=== PATIENT | female | born 1980 | race African-American/Black ===

== ENCOUNTER 2017-06-03 16:13 | Emergency (ER) | payer OTHER ==
[~2017-06-03 16:13] MED LIST: FERR325C PO; FERRTAB2 PO; OB CCAP2 PO; PREN1CAP7 PO
--- NOTE | 2017-06-03 17:26 | PD ---
HPI Chief Complaint Abdominal pain Date Seen: Jun 03, 2017 Time Seen: 17:15 Travel History International Travel<30 Days: No Contact w/Intl Traveler<30Days: No Known Affected Area: No History of Present Illness HPI This patient is a 37-year-old black female A5 who is 18 weeks gestation [facility] and presents complaining of lower abdominal pain today at the past 5 hours. She denies bleeding or leakage of fluid. She has not felt movement yet ,too early. heart tones in 130s Weeks Gestation: 18 Para: 0 : 6 Last Menstrual Period: Jun 03, 2017 Miscarriage: 5 History Obstetric History Obstetric History 5 early losses Social History Alcohol Use: No Tobacco Use: No Substance Abuse: No Allergies-Medications (Allergen,Severity, Reaction): Coded Allergies: No Known Allergies (Verified , 06/01/17) Home Meds Active Scripts Ferrous Sulfate (Iron) 325 Mg Cap, 325 MG PO TIDPC for Nutritional Supplement, # 90 TAB 6 Refills Prov:Nishant Short MD, R3 06/01/17 Multi-Vit/Iron-Folic [id number] C (Ferralet) 90-1-0.012-120 mg Tab, 1 CAPLET PO DAILY for anemia, #60 CAPLET 3 Refills Prov:Joe Plasencia MD 05/30/17 W/O Vit A W/ Fe Fumar (Citranatal [place]) 27-1-260 Mg Cap, 1 CAP PO DAILY Y for daily, #30 CAP 3 Refills Prov:Joe Plasencia MD 05/30/17 Prenat Vit W/ Iron Carbonyl-Fe (Ob Complete/Dha 30-10-1-200 mg) 30-10-1 Mg Cap, 1 CAP PO DAILY, #30 CAP 9 Refills Prov:Nishant Short MD, R3 05/26/17 Review of Systems General / Constitutional: No: Fever, Weight Gain, Chills, Other Eyes: No: Diploplia, Blurred Vision, Visual changes, Pain, Photophobia HENT: No: Headaches, Vertigo, Lightheadedness Cardiovascular: No: Irregular Rhythm, Chest Pain or Discomfort, Palpitations, Tachycardia, Syncope, Varicosities, Edema, Cyanosis Respiratory: No: Cough, Short of Breath, Other Gastrointestinal: Abdominal Pain, No: Nausea, Vomiting, Diarrhea Genitourinary: No: Decreased Urinary Output, Oliguria Musculoskeletal: No: Limited ROM, Weakness, Cramping, Edema, Pain Skin: No Rash, No Itching, No Dryness, No Lumps, No Change in Pigmentation, No Change in Nails, No Alopecia, No Lesions Neurologic: No: Weakness, Dizziness, Syncope, Focal Abnormalities, Coordination Problem, Headache, Slurred Speech, Seizures Psychiatric: No: Depression, Suicidal Ideations, Homicidal Ideation Endocrine: No: Heat Intolerance, Cold Intolerance, Polydipsia, Polyuria, Other Physical Exam Narrative GENERAL: Well-nourished, well-developed patient. SKIN: Warm and dry. HEAD: Normocephalic and atraumatic. EYES: No scleral icterus. No injection or drainage. ENT: No nasal drainage noted. Mucous membranes pink. Airway patent. NECK: Supple, trachea midline. No JVD. CARDIOVASCULAR: Regular rate and rhythm without murmurs, gallops, or rubs. RESPIRATORY: Breath sounds equal bilaterally. No accessory muscle use. BREASTS: Bilateral exam showed no masses , no retractions, no nipple discharge. ABDOMEN/GI: Abdomen soft, 2+-tender, bowel sounds present, no rebound, no guarding Gravid to [18-] weeks size Fundal Height: [18-] GENITOURINARY: External Genitalia: intact and normal in appearance Cervix: [-Closed] Dilatation: [Closed-] Effacement: [-Thick] Station: [-3] Membranes: [intact ] Uterine Contractions: [-none] FHT's: 133 EXTREMITIES: No cyanosis , the both ankles and feet are 2-3+ swollen BACK: Nontender without obvious deformity. No CVA tenderness. NEUROLOGICAL: Awake and alert. Motor and sensory grossly within normal limits. Five out of 5 muscle strength in all muscle groups. Normal speech. MDM Interpretation(s) Patient is a 37-year-old black female A5 is 18 weeks gestation presents complaining abdominal pain today. She has no bleeding or leakage of fluid. Cervix is closed and thick and high. heart tones 130s to 140s urine dipstick pending. She has significant swelling in both feet and ankles, blood pressure is normal and she was instructed elevator legs as much as possible Plan Plan the patient to increase bed rest over the next 24 hours Tylenol liberally for pain when necessary oral meds, heating pad or hot bath for symptoms Diagnosis Diagnosis: Primary Impression: Pain of round ligament during Disposition: 01 DISCHARGE HOME Condition: Stable Wolfgang Swift II, MD Jun 03, 2017 17:26
[2017-06-07] MEDS ORDERED: MILKSUS PO (14:24)
[2017-07-01] MEDS ORDERED: OB CCAP2 PO (14:42)
[2017-07-04] MEDS ORDERED: PREN1CAP7 PO (13:19)
[2017-07-04] MEDS ORDERED: FERRTAB2 PO (13:19)
== END 2017-06-03 17:58 | disposition home or self-care (01) ==
LOC: HOBED 16:13
DX: O26.892 Other specified pregnancy related conditions, second trimester (principal); R10.30 Lower abdominal pain, unspecified; O09.522 Supervision of elderly multigravida, second trimester; Z3A.18 18 weeks gestation of pregnancy
CPT/HCPCS: 99283

== ENCOUNTER → 2017-06-06 | Outpatient (CLI) | payer OTHER ==
[~2017-06-06] MED LIST changes: +MILKSUS PO
== END ==
LOC: HPND 13:04
PROVIDERS: ATTEND Family Medicine
DX: O09.519 Supervision of elderly primigravida, unspecified trimester (principal); O09.299 Supervision of pregnancy with other poor reproductive or obstetric history, unspecified trimester; Z3A.17 17 weeks gestation of pregnancy
CPT/HCPCS: 76805

== ENCOUNTER → 2017-06-22 | Outpatient (CLI) | payer OTHER | LOC: HPND 10:11 | PROVIDERS: ATTEND Family Medicine | DX: O09.522 Supervision of elderly multigravida, second trimester (principal); O09.292 Supervision of pregnancy with other poor reproductive or obstetric history, second trimester | CPT/HCPCS: 76811; 76817 ==

== ENCOUNTER 2017-09-30 15:40 | Emergency (ER) | payer OTHER ==
[~2017-09-30] VITALS: Ht 185.4 cm; Wt 90.0 kg
[2017-09-30 15:47] VITALS: BP 111/74; PULSE 100; RESP 18; TEMP 98.2; O2SAT 98
--- NOTE | 2017-09-30 16:17 | PD ---
HPI Chief Complaint: Head Injury Time Seen by Provider: 16:17 Travel History International Travel<30 days: No Contact w/Intl Traveler<30days: No Traveled to known affect area: No History of Present Illness HPI 37 year old Jayne female presents the emergency department status post head injury. Patient was walking out of the office when she turned to the left hitting her left lateral brow on a pole. Patient was immediately dazed and confused, without loss of consciousness. She presents with ongoing pain to this area and a "pulsing feeling behind the left eye." Patient feels her vision is slightly blurry in the left eye. Eyes diplopia. She states no significant headache, but pain along the left yazidism and left maxillary cheek. There is no open wound or abrasion. Denies dental pain or injury. Denies neck pain. Pain is 7 out of 10. OB nurse comes down from upstairs and finds heart tones 130 bpm with spontaneous movement noted. Patient is 34 weeks PFSH Past Medical History Autoimmune Disease: No Blood Disorders: No Anxiety: No Depression: No Cancer: No Cardiovascular Problems: No Chemotherapy: No Diminished Hearing: No Endocrine: No Genitourinary: No Immune Disorder: No Musculoskeletal: No Neurologic: No Psychiatric: No Reproductive: Yes Respiratory: No Integumentary: Yes Pneumonia: Yes Radiation Therapy: No Sickle Cell Disease: Yes (TRAIT) : 6 Para: 0 Miscarriage: 6 Dilation and Curettage (D&C): Yes Past Surgical History Abdominal Surgery: No Cardiac Surgery: No Ear Surgery: No Endocrine Surgery: No Eye Surgery: No Genitourinary Surgery: No Gynecologic Surgery: Yes (D/C) Neurologic Surgery: No Oral Surgery: No Pacemaker: No Thoracic Surgery: No Other Surgery: Yes Social History Alcohol Use: No Tobacco Use: No Substance Use: No Allergies-Medications (Allergen,Severity, Reaction): Coded Allergies: No Known Allergies (Verified Adverse Reaction, Unknown, 09/30/17) Reported Meds & Prescriptions Reported Meds & Active Scripts Active Ferralet (Multi-Vit/Iron-Folic [id number] C) 90-1-0.012-120 mg Tab 1 Caplet PO DAILY Ob Complete/Dha 30-10-1-200 mg (Prenat Vit W/ Iron Carbonyl-Fe) 30-10-1 Mg Cap 1 Cap PO DAILY Citranatal [place] ( W/O Vit A W/ Fe Fumar) 27-1-260 Mg Cap 1 Cap PO DAILY PRN Milk of Magnesia Liq (Magnesium Hydroxide) 400 Mg/5 Ml Susp 15 Ml PO DAILY PRN Reported Ferrous Sulfate 325 Mg (65 Mg Iron) Tablet 325 Mg PO DAILY Review of Systems Except as stated in HPI: all other systems reviewed are Neg General / Constitutional: No: Fever Eyes: Positive: Blurred Vision, Pain, No: Diploplia, Photophobia, Drainage, Redness, Foreign Body Sensation, Tearing, Blind Spots, Visual changes, Blindness HENT: Positive: Headaches, No: Vertigo, Lightheadedness, Sore Throat, Rhinitis , Rhinorrhea, Congestion, Nosebleed, Neck Stiffness, Neck Pain, Dental Difficulties, Earache Cardiovascular: No: Chest Pain or Discomfort Respiratory: No: Shortness of Breath Gastrointestinal: No: Abdominal Pain Genitourinary: No: Dysuria Musculoskeletal: No: Pain Skin: No Rash Neurologic: No: Weakness Psychiatric: No: Depression Endocrine: No: Polydipsia Hematologic/Lymphatic: No: Easy Bruising Physical Exam Narrative GENERAL: Patient appears in mild to moderate distress. SKIN: Warm and dry. Normal color. Normal turgor. There is no obvious contused swelling area to the left lateral brow without abrasion or open wound. HEAD: Patient has tenderness with palpation to the left lateral brow and left maxillary cheek/zygomatic region. No bony deformities noted. No crepitus. EYES: Pupils equal and round. No scleral icterus. No injection or drainage. ENT: No nasal bleeding or discharge. Mucous membranes pink and moist. Patient is able to close her jaw appropriately. There is no dental injury. Pharynx is clear. Airway is patent. NECK: Trachea midline. No bony step-off or tenderness. There is full range of motion without tenderness. CARDIOVASCULAR: Regular rate and rhythm. RESPIRATORY: No accessory muscle use. Clear to auscultation. Breath sounds equal bilaterally. GASTROINTESTINAL: Abdomen soft, non-tender, nondistended. Hepatic and splenic margins not palpable. MUSCULOSKELETAL: Extremities without clubbing, cyanosis, or edema. No obvious deformities. NEUROLOGICAL: Awake and alert. No obvious cranial nerve deficits. Motor grossly within normal limits. Five out of 5 muscle strength in the arms and legs. Normal speech. PSYCHIATRIC: Appropriate mood and affect; insight and judgment normal. Data Data Last Documented VS Vital Signs Date Time Temp Pulse Resp B/P (MAP) Pulse Ox O2 Delivery O2 Flow Rate FiO2 09/30/17 15:47 98.2 100 18 111/74 (86) [address] Brain W/O Iv Contrast(Rout) (09/30/17 16:34) Ct Facial Bones W/O Iv Cont (09/30/17 16:34) MDM Medical Decision Making Medical Screen Exam Complete: Yes Emergency Medical Condition: Yes Differential Diagnosis Facial contusion. Facial fracture. Ordered fracture. Intracranial bleed. 34 weeks . Narrative Course heart tones are 130 bpm, spontaneous movement is noted. CT of the head and facial bones are ordered after discussion with Dr. Hathaway. CT of the head and facial bones are both negative per radiologist. Patient is medically cleared to the OB floor. Patient is to use Tylenol and ice to the area as needed. Diagnosis Primary Impression: Contusion of face Qualified Codes: S00.83XA - Contusion of other part of head, initial encounter Additional Impression: 34 weeks gestation of Patient Instructions: General Instructions Med/Other Pt SpecificInfo: No Meds Exist/No RX given Disposition: 01 DISCHARGE HOME Condition: Stable Kamaljit Wong Sep 30, 2017 16:17
[2017-09-30] MEDS ORDERED: FERR325T18 PO (16:38)
--- NOTE | 2017-09-30 17:28 | RADRPT ---
EXAM DATE/TIME: 09/30/2017 17:16 [facility] COMPARISON: CT BRAIN W/O CONTRAST, April 11, 2016, 12:33. INDICATIONS : Head pain due to walking into a pole. RADIATION DOSE: CTDIvol (mGy) MEDICAL HISTORY : Sickle cell disease. 34 weeks . SURGICAL HISTORY : None. ENCOUNTER: Initial ACUITY: 1 day PAIN SCALE: 5/10 LOCATION: Bilateral cranial TECHNIQUE: Multiple contiguous axial images were obtained of the head. Using automated exposure control and adj ustment of the mA and/or kV according to patient size, radiation dose was kept as low as reasonably a chievable to obtain optimal diagnostic quality images. DICOM format image data is available electro nically for review and comparison. FINDINGS: CEREBRUM: The ventricles are normal for age. No evidence of midline shift, mass lesion, hemorrhage or acute in farction. No extra-axial fluid collections are seen. POSTERIOR FOSSA: The cerebellum and brainstem are intact. The 4th ventricle is midline. The cerebellopontine angle i s unremarkable. EXTRACRANIAL: The visualized portion of the orbits is intact. SKULL: The calvaria is intact. No evidence of skull fracture. CONCLUSION: Normal examination. No significant change has occurred. López Goldstein MD on September 30, 2017 at 17:25 Board Certified Radiologist. This report was verified electronically.
--- NOTE | 2017-09-30 17:37 | RADRPT ---
EXAM DATE/TIME: 09/30/2017 17:16 [facility] COMPARISON: No previous studies available for comparison. INDICATIONS : Facial pain due to walking into a pole. RADIATION DOSE: 63.71 CTDIvol (mGy) MEDICAL HISTORY : Sickle cell disease. SURGICAL HISTORY : None. ENCOUNTER: Initial ACUITY: 1 day PAIN SCORE: 7/10 LOCATION: Bilateral facial region. TECHNIQUE: Volumetric scanning of the facial bones was performed. Using automated exposure contr ol and adjustment of the mA and/or kV according to patient size, radiation dose was kept as low as re asonably achievable to obtain optimal diagnostic quality images. DICOM format image data is availabl e electronically for review and comparison. FINDINGS: ORBITS: The orbital and infraorbital osseous structures are intact. The retroconal structures potter ve a normal configuration. No radiopaque foreign bodies are seen. NASAL BONE: The nasal bone and maxillary spine are intact ZYGOMATIC ARCHES: Symmetric without evidence of fracture. SINUSES: The maxillary, ethmoid and frontal sinuses are intact. No air-fluid levels seen. NASAL CAVITY: The nasal septum is intact and midline. The lacrimal ducts are intact. SOFT TISSUES: No radiopaque foreign bodies seen. No soft-tissue swelling is seen. INTRACRANIAL: No intracranial air seen. CRIBIFORM PLATE: Grossly intact. CONCLUSION: Negative examination López Goldstein MD on September 30, 2017 at 17:33 Board Certified Radiologist. This report was verified electronically.
--- NOTE | 2017-09-30 19:51 | PD ---
HPI Chief Complaint s/p head trauma Date Seen: Sep 30, 2017 Time Seen: 19:44 Travel History International Travel<30 Days: No Contact w/Intl Traveler<30Days: No Known Affected Area: No History of Present Illness HPI Pt is a 37y/o . She has PNC with [facility]. She walked into a pole today and experienced head trauma. She presented to the ED and was medically cleared and sent to the [facility] for evaluation of the baby. (While in the ED FHTs were present by Doppler). She denies LOF/VB, ctx. +FM. Weeks Gestation: 35 Para: 0 : 6 History Past Medical History Narrative Medical recurrent loss AMA anemia sickle cell trait MJ use Obstetric History Obstetric History SAB x5 Past Surgical History Narrative Surgical D&C Family History Family History: Negative Social History Alcohol Use: No Tobacco Use: No Substance Abuse: Yes () Allergies-Medications (Allergen,Severity, Reaction): Coded Allergies: No Known Allergies (Verified Adverse Reaction, Unknown, 09/30/17) Home Meds Active Scripts Multi-Vit/Iron-Folic [id number] C (Ferralet) 90-1-0.012-120 mg Tab, 1 CAPLET PO DAILY for anemia, #60 CAPLET 3 Refills Prov:Nishant Short MD, R3 09/02/17 Prenat Vit W/ Iron Carbonyl-Fe (Ob Complete/Dha 30-10-1-200 mg) 30-10-1 Mg Cap, 1 CAP PO DAILY, #30 CAP 9 Refills Prov:Nishant Short MD, R3 09/02/17 W/O Vit A W/ Fe Fumar (Citranatal [place]) 27-1-260 Mg Cap, 1 CAP PO DAILY Y for daily, #30 CAP 3 Refills Prov:Nishant Short MD, R3 07/04/17 Magnesium Hydroxide Liq (Milk of Magnesia Liq) 400 Mg/5 Ml Susp, 15 ML PO DAILY Y for CONSTIPATION, #1 BOTTLE 0 Refills Prov:Madison Sellers MD, R3 06/07/17 Reported Medications Ferrous Sulfate (Ferrous Sulfate) 325 Mg (65 Mg Iron) Tablet, 325 MG PO DAILY for Nutritional Supplement, #30 TAB 0 Refills 09/30/17 Review of Systems Except as stated in HPI: all other systems reviewed are Neg Physical Exam Vital Signs Date Time Temp Pulse Resp B/P (MAP) Pulse Ox O2 Delivery O2 Flow Rate FiO2 09/30/17 15:47 98.2 100 18 111/74 (86) 98 Narrative General: well developed, well nourished, no acute distress HEENT: normocephalic atraumatic, extraocular movements intact, neck supple Abdomen: soft, gravid, nontender, nondistended Uterus: fundus term Extremities: full range of motion Skin: normal coloration, no rashes, no suspicious skin lesions noted Neurologic: cranial nerves 2-12 grossly intact, normal muscle tone, normal gait Psychiatric: normal mood and affect, appropriate FHTs: 120s, +accels, no decels, moderate variability, reactive Conner: no ctx Data Data Vital Signs Reviewed: Yes Orders Orders Ct Brain W/O Iv Contrast(Rout) (09/30/17 16:34) Ct Facial Bones W/O Iv Cont (09/30/17 16:34) Ed Discharge Order (09/30/17 17:51) Vital Signs (Adult) .ON ADMISSION (09/30/17 19:42) ^ Labor Status (09/30/17 19:42) ^ Non Stress Test (09/30/17 19:42) Drug Screen, Random Urine (09/30/17 19:42) Ed Discharge Order (09/30/17 19:42) MDM Plan 37y/o @ 35.6wks with head contusion, AMA, SCT, MJ use. -- NST reactive -- UDS ordered -- no OB complaints Dispo: stable from an OB perspective s/p head trauma, d/c home with precautions , f/u for routine PNC as scheduled Diagnosis Diagnosis: Primary Impression: 35 weeks gestation of Additional Impressions: Contusion of face Qualified Codes: S00.83XA - Contusion of other part of head, initial encounter AMA (advanced maternal age) multigravida 35+ Marijuana use Disposition: 01 DISCHARGE HOME Condition: Stable Patient Instructions: General Instructions, Having Your Baby: The Labor Process (GEN), Movement (ED) Departure Forms: Tests/Procedures Lexx Crabtree MD Sep 30, 2017 19:51
--- NOTE | 2017-09-30 19:52 | PD ---
History of Present Illness History of Present Illness NST Note Indication: s/p head trauma Baseline: 120s Accelerations: present Decelerations: absent Variability: moderate Interpretation: reactive Dispo: stable for d/c home with precautions, f/u for PNC as scheduled Lexx Crabtree MD Sep 30, 2017 19:52
== END 2017-09-30 19:55 | disposition home or self-care (01) ==
LOC: NEPD 15:40 → HOBED 19:55
DX: O9A.213 Injury, poisoning and certain other consequences of external causes complicating pregnancy, third trimester (principal); S00.83XA Contusion of other part of head, initial encounter; O09.523 Supervision of elderly multigravida, third trimester; O99.323 Drug use complicating pregnancy, third trimester; F12.90 Cannabis use, unspecified, uncomplicated; D57.3 Sickle-cell trait; Z3A.35 35 weeks gestation of pregnancy
CPT/HCPCS: 59025; 70450; 70486; 80307

== ENCOUNTER 2017-11-11 15:14 | Emergency (ER) | payer OTHER ==
[~2017-11-11 15:14] MED LIST changes: -IBUP-232 PO; -OXYC1TAB63 PO; -PERI PO
--- NOTE | 2017-11-11 15:44 | PD ---
HPI Travel History International Travel<30 Days: No Contact w/Intl Traveler<30Days: No History of Present Illness HPI Patient is a 37-year-old who presents from outpatient clinic for low heart rate. Clinic reports that on Doppler patient's heart rate was in the low 100s. She reports normal movement at this time. Patient denies discharge, bloody discharge, malodorous or colored discharge. No dysuria , frequency, change in color/smell, hematuria. No cramping, contractions. No nausea, vomiting, fever, chills, abdominal pain, chest pain, shortness of breath , headache, change in vision. She states that she is unsure why she has had multiple miscarriages in the past, states she has been worked up for "blood disorders" however it has been negative. No other complaints today. Weeks Gestation: 40 Para: 0 : 6 Miscarriage: 5 : 0 History Past Medical History Medical History: Denies Significant Hx Obstetric History Obstetric History 5 Past miscarriages Past Surgical History Surgical History: No Previous Surgery Family History Family History: Negative Social History Alcohol Use: No Tobacco Use: Yes (States she smokes 1 cigarette per day) Substance Abuse: Yes (States she smokes marijuana daily for nausea) Allergies-Medications (Allergen,Severity, Reaction): Coded Allergies: No Known Allergies (Verified Adverse Reaction, Unknown, 10/10/17) Home Meds Active Scripts Multi-Vit/Iron-Folic [id number] C (Ferralet) 90-1-0.012-120 mg Tab, 1 CAPLET PO DAILY for anemia, #60 CAPLET 3 Refills Prov:Nishant Short MD, R3 09/02/17 Prenat Vit W/ Iron Carbonyl-Fe (Ob Complete/Dha 30-10-1-200 mg) 30-10-1 Mg Cap, 1 CAP PO DAILY, #30 CAP 9 Refills Prov:Nishant Short MD, R3 09/02/17 W/O Vit A W/ Fe Fumar (Citranatal [place]) 27-1-260 Mg Cap, 1 CAP PO DAILY Y for daily, #30 CAP 3 Refills Prov:Nishant Short MD, R3 07/04/17 Magnesium Hydroxide Liq (Milk of Magnesia Liq) 400 Mg/5 Ml Susp, 15 ML PO DAILY Y for CONSTIPATION, #1 BOTTLE 0 Refills Prov:Madison Sellers MD, R3 06/07/17 Reported Medications Ferrous Sulfate (Ferrous Sulfate) 325 Mg (65 Mg Iron) Tablet, 325 MG PO DAILY for Nutritional Supplement, #30 TAB 0 Refills 09/30/17 Review of Systems General / Constitutional: No: Fever, Chills Eyes: No: Diploplia, Blurred Vision, Visual changes, Pain HENT: No: Headaches, Vertigo, Lightheadedness Cardiovascular: No: Irregular Rhythm, Chest Pain or Discomfort Respiratory: No: Cough, Short of Breath, Wheezing Gastrointestinal: Constipation (Occasional, self resolved), No: Nausea, Vomiting, Diarrhea, Abdominal Pain, Hematemesis, Hematochezia, Changes in Bowel Habits Genitourinary: No: Urgency, Frequency, Dysuria, Nocturia, Hematuria, Discharge , Vaginal Bleeding Musculoskeletal: No: Limited ROM, Weakness Skin: No Rash, No Itching, No Dryness Neurologic: No: Weakness, Dizziness, Syncope Psychiatric: No: Anxiety, Depression Endocrine: No: Polydipsia, Polyuria Physical Exam Narrative GENERAL: Well-nourished, well-developed patient. SKIN: Warm and dry. HEAD: Normocephalic and atraumatic. EYES: No scleral icterus. No injection or drainage. ENT: No nasal drainage noted. Mucous membranes pink. Airway patent. NECK: Supple, trachea midline. No JVD. CARDIOVASCULAR: Regular rate and rhythm without murmurs, gallops, or rubs. RESPIRATORY: Breath sounds equal bilaterally. No accessory muscle use. ABDOMEN/GI: Abdomen soft, non-tender, bowel sounds present, no rebound, no guarding GENITOURINARY: External Genitalia: intact and normal in appearance Cervix: Posterior Dilatation: Closed Effacement: Thick Station: -3 Membranes: Intact Uterine Contractions: None FHT's: Initially nonreactive with minimal variability, improved to as described below Category: 1 Baseline: 140 Reactive: Yes Variability: Moderate Decels: None EXTREMITIES: No cyanosis or edema. BACK: Nontender without obvious deformity. No CVA tenderness. NEUROLOGICAL: Awake and alert. Motor and sensory grossly within normal limits. Five out of 5 muscle strength in all muscle groups. Normal speech. Data Data Vital Signs Reviewed: Yes MDM Plan Patient is a 37-year-old at 40/2 who presented today from her outpatient office for decreased heart rate. Upon presentation she had no complaints , contractions, fluid loss. Initial FHT showed nonreactive, heart tones with minimal variability. Heart rate within normal limits. -BPP 6/8 with a 0 for fluid ORTIZ 2.7 -FHT category 1, reassuring -encourage p.o. hydration -Discussed with patient current risks of advanced maternal age, past miscarriage , current status, BPP and recommended cervical ripening and induction. ROSE Swift Addendum: Patient eloped against medical advice and prior to admission with cervical ripening/induction. Patient later returned for admission. Diagnosis Diagnosis: Primary Impression: Post-dates Qualified Codes: O48.0 - Post-term Additional Impressions: Multigravida of advanced maternal age in third trimester 40 weeks gestation of Jacky Roa MD R1 Nov 11, 2017 15:43
== END 2017-11-11 17:38 | disposition left against medical advice (07) ==
LOC: HOBED 15:14
DX: O48.0 Post-term pregnancy (principal); O09.523 Supervision of elderly multigravida, third trimester; Z3A.40 40 weeks gestation of pregnancy; O99.333 Smoking (tobacco) complicating pregnancy, third trimester; F17.210 Nicotine dependence, cigarettes, uncomplicated
CPT/HCPCS: 59025; 76819; 80307; G0481

== ENCOUNTER 2017-11-11 18:07 | Inpatient (IN) | payer OTHER ==
[~2017-11-11] VITALS: Ht 185.4 cm; Wt 87.0 kg
[~2017-11-11 18:07] MED LIST changes: +LACTATED RINGER'S 1000 ML INJ 2,000 ML IV ONE; +ONDANSETRON HCL 4 MG/2 ML VIAL IV ONE; +OXYTOCIN 10 UNIT/ML AMP IV ONE; +PHENYLEPH/NS 1000 MCG/10 ML SYR IV ONE; +PROPOFOL 200 MG/20 ML AMP IV ONE; +ePHEDrine/NS 25 MG/5 ML SYRINGE IV ONE
[2017-11-11] MEDS ORDERED: LACTATED RINGER'S 1000 ML INJ 1,000 ML IV PRN (18:13)
[2017-11-11] MEDS ORDERED: LACTATED RINGER'S 1000 ML INJ 1,000 ML IV SCH (18:13)
--- NOTE | 2017-11-11 18:14 | HHI.HP ---
History & Physical H&P HPI HPI Travel History International Travel<30 Days: No Contact w/Intl Traveler<30Days: No History of Present Illness HPI Patient is a 37-year-old who presents from outpatient clinic for low heart rate. Clinic reports that on Doppler patient's heart rate was in the low 100s. She reports normal movement at this time. Patient denies discharge, bloody discharge, malodorous or colored discharge. No dysuria , frequency, change in color/smell, hematuria. No cramping, contractions. No nausea, vomiting, fever, chills, abdominal pain, chest pain, shortness of breath , headache, change in vision. She states that she is unsure why she has had multiple miscarriages in the past, states she has been worked up for "blood disorders" however it has been negative. No other complaints today. Weeks Gestation: 40 Para: 0 : 6 Miscarriage: 5 : 0 History (Limited) History Past Medical History Medical History: Denies Significant Hx Obstetric History Obstetric History 5 Past miscarriages Past Surgical History Surgical History: No Previous Surgery Family History Family History: Negative Social History Alcohol Use: No Tobacco Use: Yes (States she smokes 1 cigarette per day) Substance Abuse: Yes (States she smokes marijuana daily for nausea) Allergies-Medications Allergies-Medications (Allergen,Severity, Reaction): Coded Allergies: No Known Allergies (Verified Adverse Reaction, Unknown, 10/10/17) Home Meds Active Scripts Multi-Vit/Iron-Folic [id number] C (Ferralet) 90-1-0.012-120 mg Tab, 1 CAPLET PO DAILY for anemia, #60 CAPLET 3 Refills Prov:Nishant Short MD, R3 09/02/17 Prenat Vit W/ Iron Carbonyl-Fe (Ob Complete/Dha 30-10-1-200 mg) 30-10-1 Mg Cap, 1 CAP PO DAILY, #30 CAP 9 Refills Prov:Nishant Short MD, R3 09/02/17 W/O Vit A W/ Fe Fumar (Citranatal Smoot) 27-1-260 Mg Cap, 1 CAP PO DAILY Y for daily, #30 CAP 3 Refills Prov:Nishant Short MD, R3 07/04/17 Magnesium Hydroxide Liq (Milk of Magnesia Liq) 400 Mg/5 Ml Susp, 15 ML PO DAILY Y for CONSTIPATION, #1 BOTTLE 0 Refills Prov:Madison Sellers MD, R3 06/07/17 Reported Medications Ferrous Sulfate (Ferrous Sulfate) 325 Mg (65 Mg Iron) Tablet, 325 MG PO DAILY for Nutritional Supplement, #30 TAB 0 Refills 09/30/17 ROS Review of Systems General / Constitutional: No: Fever, Chills Eyes: No: Diploplia, Blurred Vision, Visual changes, Pain HENT: No: Headaches, Vertigo, Lightheadedness Cardiovascular: No: Irregular Rhythm, Chest Pain or Discomfort Respiratory: No: Cough, Short of Breath, Wheezing Gastrointestinal: Constipation (Occasional, self resolved), No: Nausea, Vomiting, Diarrhea, Abdominal Pain, Hematemesis, Hematochezia, Changes in Bowel Habits Genitourinary: No: Urgency, Frequency, Dysuria, Nocturia, Hematuria, Discharge , Vaginal Bleeding Musculoskeletal: No: Limited ROM, Weakness Skin: No Rash, No Itching, No Dryness Neurologic: No: Weakness, Dizziness, Syncope Psychiatric: No: Anxiety, Depression Endocrine: No: Polydipsia, Polyuria Physical Exam Physical Exam Narrative GENERAL: Well-nourished, well-developed patient. SKIN: Warm and dry. HEAD: Normocephalic and atraumatic. EYES: No scleral icterus. No injection or drainage. ENT: No nasal drainage noted. Mucous membranes pink. Airway patent. NECK: Supple, trachea midline. No JVD. CARDIOVASCULAR: Regular rate and rhythm without murmurs, gallops, or rubs. RESPIRATORY: Breath sounds equal bilaterally. No accessory muscle use. ABDOMEN/GI: Abdomen soft, non-tender, bowel sounds present, no rebound, no guarding GENITOURINARY: External Genitalia: intact and normal in appearance Cervix: Posterior Dilatation: Closed Effacement: Thick Station: -3 Membranes: Intact Uterine Contractions: None FHT's: Initially nonreactive with minimal variability, improved to as described below Category: 1 Baseline: 140 Reactive: Yes Variability: Moderate Decels: None EXTREMITIES: No cyanosis or edema. BACK: Nontender without obvious deformity. No CVA tenderness. NEUROLOGICAL: Awake and alert. Motor and sensory grossly within normal limits. Five out of 5 muscle strength in all muscle groups. Normal speech. Data Data Data Vital Signs Reviewed: Yes MDM MDM Plan Patient is a 37-year-old at 40/2 who presented today from her outpatient office for decreased heart rate. Upon presentation she had no complaints , contractions, fluid loss. Initial FHT showed nonreactive, heart tones with minimal variability. Heart rate within normal limits. -BPP 6/8 with a 0 for fluid ORTIZ 2.7 -FHT category 1, reassuring -encourage p.o. hydration -Discussed with patient current risks of advanced maternal age, past miscarriage , current status, BPP and recommended cervical ripening and induction. ROSE Swift Addendum: Patient eloped against medical advice and prior to admission with cervical ripening/induction. Patient later returned for admission. Diagnosis Diagnosis: Primary Impression: Post-dates Qualified Codes: O48.0 - Post-term Additional Impressions: Multigravida of advanced maternal age in third trimester 40 weeks gestation of Jacky Roa MD R1 Nov 11, 2017 18:14
[2017-11-11] MEDS ORDERED: LIDOCAINE HCL 1% 50 ML VIAL INFIL PRN (18:15)
[2017-11-11] MEDS ORDERED: OXYTOCIN 30 UNITS-500ML PREMIX 500 ML IV ONE ×2 (18:15→23:15)
[2017-11-11] MEDS ORDERED: LIDOCAINE HCL 1% 50 ML VIAL I-DERMAL PRN (18:15)
[2017-11-11] MEDS ORDERED: CITRIC ACID-SODIUM CITRATE LIQ 30 ML UDC PO SCH ×2 (18:15→23:15)
[2017-11-11] MEDS ORDERED: SODIUM CHLORID 0.9% 500 ML INJ 500 ML IV PRN (18:15)
[2017-11-11] MEDS ORDERED: MISOPROSTOL 25 MCG TAB VAGINAL ONE (18:15)
[2017-11-11] MEDS ORDERED: MINERAL OIL 10 ML VIAL TOPICAL PRN (18:15)
[2017-11-11] MEDS ORDERED: SODIUM CHLOR 0.9% 1000 ML INJ 1,000 ML IV PRN (18:33)
[2017-11-11 18:53] VITALS: BP 110/72; PULSE 79
[2017-11-11 18:58] LABS: AUTOMATED NEUTROPHIL # 5.8 TH/MM3 (1.8-7.7); EOSINOPHIL # 0.1 TH/MM3 (0-0.4); EOSINOPHIL % 0.8 % (0.0-4.0); HEMATOCRIT 30.3 % (35.0-46.0); HEMOGLOBIN 10.9 GM/DL (11.6-15.3); LYMPH % 30.9 % (9.0-44.0); MEAN CELL VOLUME 83.3 FL (80.0-100.0); MEAN CORPUSCULAR HEMOGLOBIN 30.1 PG (27.0-34.0); MEAN PLATELET VOLUME 6.6 FL (7.0-11.0); MONO % 8.6 % (0.0-8.0); MONOCYTE # 0.8 TH/MM3 (0-0.9); NEUT % 59.7 % (16.0-70.0); PLATELET COUNT 296 TH/MM3 (150-450); RED BLOOD COUNT 3.63 MIL/MM3 (4.00-5.30); WHITE BLOOD COUNT 9.7 TH/MM3 (4.0-11.0)
[2017-11-11 19:02] LABS: MEAN CORPUSCULAR HGB CONC 36.1 % (32.0-36.0)
[2017-11-11] MEDS ORDERED: DINOPROSTONE 10 MG VAG INSERT VAGINAL ONE (19:30)
[2017-11-11 19:49] VITALS: BP 113/70; PULSE 79
[2017-11-11 20:29] LABS: BACTERIA, URINE MOD /hpf; BILIRUBIN, URINE NEG (NEG); BLOOD, URINE NEG (NEG); GLUCOSE,URINE NEG (NEG); KETONE, URINE NEG (NEG); NITRITE,URINE NEG (NEG); SQUAMOUS EPITHELIAL CELL URINE 16 /hpf (0-5); URINE COLOR LIGHT-YELLOW (YELLW/STRAW); URINE LEUKOCYTE ESTERASE LARGE (NEG)
[2017-11-11] MEDS ORDERED: DOCUSATE SODIUM 100 MG CAP PO SCH (21:00)
[2017-11-11] MEDS ORDERED: MORPHINE SULFATE PF 5 MG/10 ML VIAL ONE (21:58)
[2017-11-11] MEDS ORDERED: EPIDURAL-NO SYSTEMIC NARCOTICS PRN (22:00)
[2017-11-11] MEDS ORDERED: EPIDURAL-DO NOT ADMINISTER ANTICOAGULANTS PRN (22:00)
[2017-11-11] MEDS ORDERED: EPIDURAL-NALOXONE HCL 0.4 MG/ML AMP IV PUSH PRN (22:00)
[2017-11-11] MEDS ORDERED: EPIDURAL-DIPHENHYDRAMINE HCL 50 MG CAP PO PRN (22:00)
[2017-11-11] MEDS ORDERED: EPIDURAL-DIPHENHYDRAMINE HCL 50 MG/ML VIAL IV PUSH PRN (22:00)
[2017-11-11] MEDS ORDERED: ceFAZolin 2 GM PREMIX 50 ML IV SCH (22:45)
[2017-11-11] MEDS ORDERED: KETOROLAC TROMETHAMINE 60 MG/2 ML (IM) VIAL IM PRN ×2 (23:15)
[2017-11-11] MEDS ORDERED: MORPHINE SULFATE 4 MG/ML INJ IV PUSH PRN (23:15)
[2017-11-11] MEDS ORDERED: SIMETHICONE 80 MG CHEWABLE TAB PO PRN (23:15)
[2017-11-11] MEDS ORDERED: ACETAMINOPHEN 325 MG TAB PO PRN (23:15)
[2017-11-11] MEDS ORDERED: ZOLPIDEM TARTRATE 5 MG TAB PO PRN (23:15)
[2017-11-11] MEDS ORDERED: cloNIDine HCL 0.1 MG TAB PO PRN (23:15)
[2017-11-11] MEDS ORDERED: LORazepam 2 MG/ML VIAL IV PUSH PRN (23:15)
[2017-11-11] MEDS ORDERED: SODIUM CHLORIDE 0.9% FLUSH 10 ML FLUSH IV FLUSH PRN (23:15)
[2017-11-11] MEDS ORDERED: ONDANSETRON HCL 4 MG/2 ML VIAL IV PUSH PRN (23:15)
[2017-11-11] MEDS ORDERED: MIDAZOLAM HCL 2 MG/2 ML VIAL ONE ×2 (23:21)
[2017-11-11] MEDS ORDERED: MEPERIDINE HCL 25 MG/ML VIAL ONE (23:23)
[2017-11-11 23:30] VITALS: BP 110/66; PULSE 71; RESP 22; TEMP 97.6; O2SAT 100
[2017-11-11 23:40] VITALS: BP 123/72; PULSE 64; RESP 18
[2017-11-11 23:41] VITALS: O2SAT 100
[2017-11-11] MEDS: LACTATED RINGER'S 1000 ML INJ 1,000 ML IV SCH (23:47)
[2017-11-11 23:51] VITALS: BP 114/69; PULSE 53; RESP 17; O2SAT 100
[2017-11-12 00:02] VITALS: BP 123/84; PULSE 50; RESP 17; O2SAT 100
[2017-11-12 00:16] VITALS: BP 137/82; RESP 21; O2SAT 100
--- NOTE | 2017-11-12 01:58 | MP ---
cc: Wolfgang Swift MD DATE OF OPERATION: 11/11/2017 PREOPERATIVE DIAGNOSIS: Intrauterine at 40 weeks with nonreassuring heart rate tracing, oligohydramnios, drug use in . POSTOPERATIVE DIAGNOSIS: Intrauterine at 40 weeks with nonreassuring heart rate tracing, oligohydramnios, drug use in , with a 10% marginal abruption. PROCEDURE PERFORMED: Primary low transverse section. SURGEON: Wolfgang Swift MD ENGRAVER TENDER: _Lisa Sellers MD_ ANESTHESIA: Spinal. PREOPERATIVE NOTE: The patient is a 37-year-old black female, A5 at 40 weeks and 2 days who was sent to OB ED for a bradycardic episode, noted to have oligohydramnios on her biophysical profile and drug screening positive for multiple drugs. I felt the patient needed to be induced, and induction admission orders were placed. However, could not begin the induction due to repetitive late decelerations noted on the heart rate tracing, as though the baby was not tolerating the intrauterine environment as it was, with very few contractions, and that induction was going to be undoable, so she counseled for section. The patient was taken to the operating room for transabdominal delivery. DESCRIPTION OF PROCEDURE: The patient was taken to the operating room and placed in supine position after spinal anesthesia, was prepped and draped appropriately. A Pfannenstiel incision was made and carried to the fascia sharply. The fascia was dissected off the rectus muscle and the rectus was split in the midline, the peritoneal cavity entered sharply. The incision was extended superiorly and inferiorly and the bladder blade placed in the lower edge of the incision. The visceral peritoneum was reflected off the lower uterine segment and ____ bladder blade. A transverse hysterotomy was made and extended bluntly bilaterally, and minimal clear fluid was noted at that time. The placenta was anterior and was presenting in the incision spontaneously. A female was delivered from vertex presentation at 10:27 p.m., weight 2790 grams, Apgars 8 and 9, cord pH 7.27. Delayed cord clamping was done, cord blood obtained. The placenta was manually extracted but came out very easily, as it showed signs of abruption. The uterus was exteriorized and the hysterotomy closed with a running layer of 0 chromic, followed by imbricating suture of same. Hemostasis achieved with several stick ties. The bladder was reapproximated using running suture of 2-0 Vicryl. The uterus was elevated and the ovaries and tubes were noted to be normal. The cul-de-sac was suctioned of blood and the uterus replaced in the peritoneal cavity. The gutters were also visualized and inspected. The parietal peritoneum was closed with a running layer of 2-0 Vicryl. The rectus muscle was reapproximated with stick ties of chromic and Vicryl. The fascia was closed in a running layer of 0 Vicryl, the subcutaneous tissues reapproximated with a running plain catgut suture, and the skin closed with 3-0 Monocryl subcuticular stitch. Steri-Strips and a pressure dressing were applied. The estimated blood loss was 500 mL. There were no complications. Sponge and needle count was correct x 2. The patient to recovery in stable condition. MD JOSE FRANCISCO Weldon/TONY , 11:25 PM , 01:56 AM MATHEW
[2017-11-12 06:30] LABS: BASOPHIL % 0.1 % (0.0-2.0); EOSINOPHIL # 0.1 TH/MM3 (0-0.4); EOSINOPHIL % 0.8 % (0.0-4.0); HEMATOCRIT 25.8 % (35.0-46.0); HEMOGLOBIN 9.1 GM/DL (11.6-15.3); LYMPH % 21.9 % (9.0-44.0); LYMPHOCYTE # 2.5 TH/MM3 (1.0-4.8); MEAN CELL VOLUME 83.6 FL (80.0-100.0); MEAN CORPUSCULAR HEMOGLOBIN 29.5 PG (27.0-34.0); MEAN CORPUSCULAR HGB CONC 35.2 % (32.0-36.0); MEAN PLATELET VOLUME 6.3 FL (7.0-11.0); MONO % 6.6 % (0.0-8.0); MONOCYTE # 0.8 TH/MM3 (0-0.9); NEUT % 70.6 % (16.0-70.0); PLATELET COUNT 222 TH/MM3 (150-450); RED BLOOD COUNT 3.08 MIL/MM3 (4.00-5.30); WHITE BLOOD COUNT 11.4 TH/MM3 (4.0-11.0)
[2017-11-12] MEDS: LACTATED RINGER'S 1000 ML INJ 1,000 ML IV SCH (06:38)
[2017-11-12] MEDS: oxyCODONE/ACETAMINOPHEN 5 MG/325 MG TAB PO PRN ×4 (06:39→19:45)
[2017-11-12 07:03] LABS: CALCIUM 7.3 MG/DL (8.5-10.1); CALCIUM-PROTEIN CORRECTED 8.3 MG/DL (8.5-10.1); CREATININE 0.48 MG/DL (0.50-1.00); TOTAL BILIRUBIN ADULT 0.2 MG/DL (0.2-1.0); TOTAL PROTEIN 5.2 GM/DL (6.4-8.2)
[2017-11-12 08:00] VITALS: BP 105/75; PULSE 72; RESP 18; TEMP 98.1
[2017-11-12] MEDS ORDERED: SODIUM CHLORIDE 0.9% FLUSH 10 ML FLUSH IV FLUSH SCH (09:00)
[2017-11-12] MEDS ORDERED: OXYTOCIN 30 UNITS-500ML PREMIX 500 ML IV PRN (09:15)
--- NOTE | 2017-11-12 09:33 | HHI.OB ---
Subjective Remarks 37 year old s/p emergent C/S for distress at 40 wks gestation, POD 1. AFVSS. Patient reports she is feeling well. Bleeding is decreasing and pain is well-controlled. She is formula feeding and bonding well with baby. Ambulating without difficulties. She is tolerating a diet without nausea or vomiting. She has not had a bowel movement. She has passed gas. Denies chest pain, dysuria, shortness of breath, or calf pain. Objective Vitals/I&O Vital Signs Date Time Temp Pulse Resp B/P (MAP) Pulse Ox O2 Delivery O2 Flow Rate FiO2 11/12/17 08:00 98.1 72 18 105/75 (85) 11/12/17 00:16 137/82 (100) 11/12/17 00:16 21 100 11/12/17 00:02 50 17 100 11/12/17 00:02 123/84 (97) 11/11/17 23:51 100 11/11/17 23:51 53 17 114/69 (84) 11/11/17 23:41 100 11/11/17 23:40 64 123/72 (89) 11/11/17 23:40 18 11/11/17 23:30 97.6 22 11/11/17 23:30 71 110/66 (81) 11/11/17 23:30 100 11/11/17 19:49 79 113/70 (84) 11/11/17 18:53 79 110/72 (85) Result Diagram: 11/12/17 0616 11/12/17 0616 Objective Remarks GENERAL: Well-nourished, well-developed patient. CARDIOVASCULAR: Regular rate and rhythm without murmurs, gallops, or rubs. RESPIRATORY: Breath sounds equal bilaterally. No accessory muscle use. ABDOMEN/GI: Abdomen soft, non-tender Incision: Clean, dry and intact. Fundus: Firm, moderately tender tender at umbilicus. GENITOURINARY: Light to moderate bleeding. EXTREMITIES: No cyanosis or edema, non-tender, without signs of DVT. Medications and IVs Current Medications Medications (Trade) Dose Ordered Sig/Robert Route Start Time Stop Time Status Last Admin Lactated Ringer's 1,000 ml @ 100 mls/hr Q10H IV 11/12/17 04:15 11/13/17 00:14 11/12/17 06:38 Oxytocin 500 ml @ 100 mls/hr UNSCH X1 PRN IV 11/12/17 09:15 11/13/17 09:14 (NS Flush) 2 ml BID IV FLUSH 11/12/17 09:00 (NS Flush) 2 ml UNSCH PRN IV FLUSH 11/11/17 23:15 (Mylicon Chew) 80 mg QID PRN PO 11/11/17 23:15 (Tylenol) 650 mg Q6H PRN PO 11/11/17 23:15 (Motrin) 600 mg Q6H PRN PO 11/11/17 23:15 (Toradol Inj) 60 mg UNSCH X1 PRN IM 11/11/17 23:15 11/12/17 23:14 11/12/17 01:35 (Toradol Inj) 30 mg Q6H PRN IM 11/11/17 23:15 11/12/17 23:14 (Percocet 5-325 Mg) 1 tab Q4H PRN PO 11/11/17 23:15 (Percocet 5-325 Mg) 2 tab Q4H PRN PO 11/11/17 23:15 11/12/17 06:39 Cefazolin Sodium 1000 mg/Sodium Chloride 100 ml @ 200 mls/hr Q8H IV 11/12/17 06:00 11/12/17 14:29 11/12/17 06:37 (Ebony-Colace) 2 tab Q12H PRN PO 11/11/17 23:15 (Ambien) 5 mg HS PRN PO 11/11/17 23:15 (M-M-R Ii Inj) 0.5 ml ONCE ONCE SQ 11/12/17 16:00 11/12/17 16:01 (Boostrix Inj) 0.5 ml ONCE ONCE IM 11/12/17 16:00 11/12/17 16:01 (Zofran Inj) 4 mg Q6H PRN IV PUSH 11/11/17 23:15 (Ativan Inj) 1 mg Q2H PRN IV PUSH 11/11/17 23:15 (Catapres) 0.1 mg Q8HR PRN PO 11/11/17 23:15 (Morphine Inj) 4 mg Q3H PRN IV PUSH 11/11/17 23:15 Miscellaneous Information NO SYSTEMIC NARCOTICS TO BE GIVEN FO... UNSCH PRN .XX 11/11/17 22:00 11/12/17 21:59 (Narcan Inj) 0.4 mg UNSCH PRN IV PUSH 11/11/17 22:00 11/12/17 21:59 (Benadryl Inj) 25 mg Q6H PRN IV PUSH 11/11/17 22:00 11/12/17 21:59 (Benadryl) 50 mg Q6H PRN PO 11/11/17 22:00 11/12/17 21:59 Miscellaneous Information ALL NURSING DEPARTMENTS UNSCH PRN .XX 11/11/17 22:00 11/12/17 21:59 Assessment/Plan Assessment and Plan 37 yo female s/p emergent C/S for distress, POD 1 - AFVSS - Continue routine care - Motrin and Percocet PRN pain - Encourage OOB - Pelvic rest x 6 wks. Will need 1 week incision check. - Contraception: Depo-Provera; first dose to be given prior to D/C - Anticipate D/C 11/12 or 3/ Kyle To MD Nov 12, 2017 09:33
[2017-11-12] MEDS ORDERED: medroxyPROGESTERone ACETATE SUSP 150 MG/ML SYRINGE IM ONE (09:45)
[2017-11-12] MEDS: IBUPROFEN 600 MG TAB PO PRN ×2 (11:10→17:28)
[2017-11-12 15:29] VITALS: TEMP 98.3
[2017-11-12] MEDS ORDERED: MEASLES, MUMPS, RUBELLA VACCINE 0.5 ML VIAL SQ ONE (16:00)
[2017-11-12] MEDS ORDERED: DIPHTH/TETANUS/ACEL PERTUSSIS (BOOSTER) 0.5 ML VIAL/PFS IM ONE (16:00)
[2017-11-12 19:45] VITALS: BP 124/87; PULSE 73; RESP 20; TEMP 98.7
[2017-11-13] MEDS: IBUPROFEN 600 MG TAB PO PRN ×4 (00:32→19:37)
[2017-11-13] MEDS: oxyCODONE/ACETAMINOPHEN 5 MG/325 MG TAB PO PRN ×6 (00:32→22:08)
[2017-11-13] MEDS: DOCUSATE SODIUM 50 MG/SENNA 8.6 MG TAB PO PRN ×2 (00:32→13:31)
[2017-11-13 07:30] VITALS: BP 110/59; PULSE 63; RESP 18; TEMP 98
[2017-11-13] MEDS ORDERED: medroxyPROGESTERone ACETATE SUSP 150 MG/ML SYRINGE IM ONE (08:00)
--- NOTE | 2017-11-13 08:27 | HHI.OB ---
Subjective Remarks 37 year old s/p C/S at 40 wks gestation, POD 2. AFVSS. Patient reports she is feeling well. Bleeding is decreasing and pain is well-controlled. She is formula feeding and bonding well with baby. Ambulating without difficulties. She is tolerating a diet without nausea or vomiting. She has not had a bowel movement. She has passed gas. Denies chest pain, dysuria, shortness of breath, or calf pain. Objective Vitals/I&O Vital Signs Date Time Temp Pulse Resp B/P (MAP) Pulse Ox O2 Delivery O2 Flow Rate FiO2 11/13/17 07:30 18 11/13/17 07:30 63 11/13/17 07:30 98.0 11/13/17 07:30 110/59 (76) 11/12/17 19:45 98.7 73 20 124/87 (99) 11/12/17 15:29 98.3 Result Diagram: 11/12/17 0616 11/12/17 0616 Objective Remarks GENERAL: Well-nourished, well-developed patient. CARDIOVASCULAR: Regular rate and rhythm without murmurs, gallops, or rubs. RESPIRATORY: Breath sounds equal bilaterally. No accessory muscle use. ABDOMEN/GI: Abdomen soft, non-tender Incision: Clean, dry and intact. Fundus: Firm, moderately tender tender at ~2 cm below umbilicus. GENITOURINARY: Light to moderate bleeding. EXTREMITIES: No cyanosis or edema, non-tender, without signs of DVT. Medications and IVs Current Medications Medications (Trade) Dose Ordered Sig/Robert Route Start Time Stop Time Status Last Admin Oxytocin 500 ml @ 100 mls/hr UNSCH X1 PRN IV 11/12/17 09:15 11/13/17 09:14 (NS Flush) 2 ml BID IV FLUSH 11/12/17 09:00 (NS Flush) 2 ml UNSCH PRN IV FLUSH 11/11/17 23:15 (Mylicon Chew) 80 mg QID PRN PO 11/11/17 23:15 (Tylenol) 650 mg Q6H PRN PO 11/11/17 23:15 (Motrin) 600 mg Q6H PRN PO 11/11/17 23:15 11/13/17 07:42 (Percocet 5-325 Mg) 1 tab Q4H PRN PO 11/11/17 23:15 11/12/17 15:24 (Percocet 5-325 Mg) 2 tab Q4H PRN PO 11/11/17 23:15 11/13/17 05:14 (Ebony-Colace) 2 tab Q12H PRN PO 11/11/17 23:15 11/13/17 00:32 (Ambien) 5 mg HS PRN PO 11/11/17 23:15 (Zofran Inj) 4 mg Q6H PRN IV PUSH 11/11/17 23:15 (Ativan Inj) 1 mg Q2H PRN IV PUSH 11/11/17 23:15 (Catapres) 0.1 mg Q8HR PRN PO 11/11/17 23:15 (Morphine Inj) 4 mg Q3H PRN IV PUSH 11/11/17 23:15 Assessment/Plan Assessment and Plan 37 yo female s/p emergent C/S for distress, POD 2 - AFVSS - Continue routine care - Motrin and Percocet PRN pain - Encourage OOB - Pelvic rest x 6 wks. Will need 1 week incision check. - Contraception: Depo-Provera; first dose to be given prior to D/C - Anticipate D/C 11/13 Kyle To MD Nov 13, 2017 08:27
[2017-11-13 20:00] VITALS: BP 118/73; PULSE 75; RESP 18; TEMP 98.2
[2017-11-14] MEDS: IBUPROFEN 600 MG TAB PO PRN ×2 (01:02→07:27)
[2017-11-14] MEDS: oxyCODONE/ACETAMINOPHEN 5 MG/325 MG TAB PO PRN ×3 (02:12→10:31)
[2017-11-14] MEDS: DOCUSATE SODIUM 50 MG/SENNA 8.6 MG TAB PO PRN (02:12)
--- NOTE | 2017-11-14 08:12 | HHI.OB ---
Subjective Post Operative Day: 3 Remarks 37 year old s/p C/S at 40 wks gestation, POD 3. AFVSS. Patient reports she is feeling well. Bleeding is decreasing and pain is well-controlled. She is formula feeding and bonding well with baby. Ambulating without difficulties. She is tolerating a diet without nausea or vomiting. She endorses having a BM and continues to pass bowel gas. Denies fevers, chills, SOB, chest pain, NVD, ABD pain, or calf tenderness. Objective Vitals/I&O Vital Signs Date Time Temp Pulse Resp B/P (MAP) Pulse Ox O2 Delivery O2 Flow Rate FiO2 11/13/17 20:00 98.2 75 18 118/73 (88) Result Diagram: 11/12/1761511/12/17615 Objective Remarks GENERAL: Well-nourished, well-developed patient. CARDIOVASCULAR: Regular rate and rhythm without murmurs, gallops, or rubs. RESPIRATORY: Breath sounds equal bilaterally. No accessory muscle use. ABDOMEN/GI: Abdomen soft, non-tender Incision: Clean, dry and intact. Fundus: Firm, moderately tender tender at ~2 cm below umbilicus. GENITOURINARY: Light to moderate bleeding. EXTREMITIES: No cyanosis or edema, non-tender, without signs of DVT. Medications and IVs Current Medications Medications (Trade) Dose Ordered Sig/Robert Route Start Time Stop Time Status Last Admin (NS Flush) 2 ml BID IV FLUSH 11/12/17 09:00 (NS Flush) 2 ml UNSCH PRN IV FLUSH 11/11/17 23:15 (Mylicon Chew) 80 mg QID PRN PO 11/11/17 23:15 11/13/17 19:40 (Tylenol) 650 mg Q6H PRN PO 11/11/17 23:15 (Motrin) 600 mg Q6H PRN PO 11/11/17 23:15 11/14/17 07:27 (Percocet 5-325 Mg) 1 tab Q4H PRN PO 11/11/17 23:15 11/13/17 17:37 (Percocet 5-325 Mg) 2 tab Q4H PRN PO 11/11/17 23:15 11/14/17 06:18 (Ebony-Colace) 2 tab Q12H PRN PO 11/11/17 23:15 11/14/17 02:12 (Ambien) 5 mg HS PRN PO 11/11/17 23:15 (Zofran Inj) 4 mg Q6H PRN IV PUSH 11/11/17 23:15 (Ativan Inj) 1 mg Q2H PRN IV PUSH 11/11/17 23:15 (Catapres) 0.1 mg Q8HR PRN PO 11/11/17 23:15 (Morphine Inj) 4 mg Q3H PRN IV PUSH 11/11/17 23:15 Assessment/Plan Assessment and Plan 37 yo female s/p emergent C/S for distress, POD 3 - AFVSS - Continue routine care - Motrin and Percocet PRN pain - Encourage OOB - Pelvic rest x 6 wks. Will need 1 week incision check. - Contraception: Depo-Provera given 11/13/17 - Anticipate D/C today DW: Dr. Diamond Discharge Planning Today Fortino Bower MD R2 Nov 14, 2017 08:12
[2017-11-14] MEDS ORDERED: OXYC1TAB63 PO (08:13)
[2017-11-14] MEDS ORDERED: PERI PO (08:13)
[2017-11-14] MEDS ORDERED: IBUP-232 PO (08:13)
--- NOTE | 2017-11-14 08:14 | HHI.DCPOC ---
Discharge Care Plan Diagnosis: (1) Single delivery by Report Symptoms to Your Doctor -Temperature above 100.5 degrees -Redness, of incision or excessive or foul smelling drainage -Unusual pain or calf pain -Increased vaginal bleeding -Painful or difficulty urinating -Feelings of extreme sadness or anxiety after 2 weeks Goals to Promote Your Health * To prevent worsening of your condition and complications * To maintain your health at the optimal level Directions to Meet Your Goals Take your medications as prescribed Follow your dietary instruction Follow activity as directed Ensure plenty of rest for recovery Drink fluids for hydration Keep your appointments as scheduled Take your immunizations and boosters as scheduled If your symptoms worsen call your PCP, if no PCP go to Urgent Care Center or Emergency Room Smoking is Dangerous to Your Health. Avoid second hand smoke Call the 24-hour crisis hotline for domestic abuse at Fortino Bower MD R2 Nov 14, 2017 08:14
== END 2017-11-14 11:15 | disposition home or self-care (01) | DRG 765 ==
LOC: H2EB 18:07 → H1EA 11-12 00:33
PROVIDERS: ADMIT Obstetrics & Gynecology Maternal & Fetal Medicine; ATTEND Obstetrics & Gynecology Maternal & Fetal Medicine
PROC: 10D00Z1 Extraction of Products of Conception, Low, Open Approach (ICD-10-PCS; principal; 2017-11-11)
DX: O48.0 Post-term pregnancy (principal); O45.93 Premature separation of placenta, unspecified, third trimester; O99.324 Drug use complicating childbirth; O26.23 Pregnancy care for patient with recurrent pregnancy loss, third trimester; O41.03X0 Oligohydramnios, third trimester, not applicable or unspecified; Z37.0 Single live birth; O99.334 Smoking (tobacco) complicating childbirth; Z3A.40 40 weeks gestation of pregnancy; F17.210 Nicotine dependence, cigarettes, uncomplicated; O76 Abnormality in fetal heart rate and rhythm complicating labor and delivery; F12.90 Cannabis use, unspecified, uncomplicated
CPT/HCPCS: 59025; 76819; 80053; 80307; 81001; 82805; 85025; 86900; 86901; 87086; 87150; 87491; 87591; 88307; 90715; G0481; J0690; J1050; J1885; J2175; J2250; J2274; J2370; J2405; J2590; J7120

== ENCOUNTER → 2017-11-11 | Outpatient (CLI) | payer OTHER ==
[~2017-11-11] MED LIST changes: -FERR325C PO; +FERR325T18 PO; +IBUP-232 PO; +OXYC1TAB63 PO; +PERI PO
== END ==
LOC: HPND 15:00
PROVIDERS: ATTEND Hospitalist
DX: Z00.00 Encounter for general adult medical examination without abnormal findings (principal)